=== PATIENT | male | born 1955 | race Caucasian/White ===

== ENCOUNTER 2021-06-18 12:33 | Emergency (ER) | payer OTHER ==
[~2021-06-18] VITALS: Ht 170.2 cm; Wt 127.0 kg
[2021-06-18 12:42] VITALS: BP 157/61
[2021-06-18] MEDS ORDERED: MORPHINE SULFATE 4 MG/ML SYR IVP ONE (12:55)
[2021-06-18] MEDS ORDERED: CLINDAMYCIN 600 MG in DEXTROSE 5% 50 ML IV ONE (12:55)
[2021-06-18] MEDS ORDERED: CLINDAMYCIN 600 MG/4 ML VIAL ONE (13:14)
[2021-06-18] MEDS ORDERED: ACET-8386 PO (13:37)
[2021-06-18] MEDS ORDERED: CLIN150C1 PO (13:37)
[2021-06-18 14:24] VITALS: BP 157/61
== END 2021-06-18 14:25 | disposition home or self-care (01) ==
LOC: MED 12:33
DX: K08.89 Other specified disorders of teeth and supporting structures (principal); I10 Essential (primary) hypertension
CPT/HCPCS: 96365; 96375; 99284; J2270; J3490